=== PATIENT | female | born 1945 | race Caucasian/White ===

== ENCOUNTER 2016-06-15 00:33 | Inpatient (IN) | payer OTHER, MEDICARE ==
[2016-06-15] VITALS (15 sets, daily range): BP systolic 97–182; BP diastolic 48–82; PULSE 84–96; RESP 15–31; TEMP 98.1–100.2; O2SAT 94–98
[~2016-06-15 00:33] MED LIST: ALEN1TAB48 PO; ASPI81TA81 PO; BROV15NE NEB; CILO100T PO; CLON1TAB PO; CLOP75TA PO; GABA300C5 PO; GLIM2TAB PO; HYDR-3533 PO; HYDR25TA5 PO; LAMO100T PO; METF1000 PO; METO100T PO; OLME0.09 PO; OMEP40CA2 PO; ROPI3TAB PO; SYMB80AE INH; TOPA25TA8 PO; TRAZ50TA12 PO; VYTO10TA9 PO
[2016-06-15] MEDS ORDERED: ONDANSETRON HCL 4 MG/2 ML VIAL IV PRN (02:30)
[2016-06-15] MEDS ORDERED: MISCELLANEOUS NURSING INFORMATION XX SCH (02:30)
[2016-06-15] MEDS ORDERED: CHLORHEXIDINE GLUCONATE 2 % 1 PACK (2 CLOTHS) TOP PRN (02:30)
[2016-06-15] MEDS ORDERED: ACETAMINOPHEN 325 MG TAB PO PRN (02:30)
[2016-06-15] MEDS ORDERED: RESP: ALBUTEROL 2.5 MG/IPRATROPIUM 0.5 MG NEB (PRN) INH (02:30)
[2016-06-15] MEDS ORDERED: SENNOSIDES 8.6 MG TAB PO PRN (02:30)
[2016-06-15] MEDS: MORPHINE SULFATE 4 MG/ML INJ IV PRN ×2 (03:31→06:50)
[2016-06-15] MEDS: CHLORHEXIDINE GLUCONATE 2 % 1 PACK (2 CLOTHS) TOP SCH (04:00)
[2016-06-15] MEDS: HEPARIN SODIUM - SQ 10,000 UNITS/ML VIAL SQ SCH ×2 (05:00→17:57)
[2016-06-15 06:05] LABS: BLOOD GAS BASE EXCESS -2.6 mmol/L (-2-2); BLOOD GAS CARBOXYHEMOGLOBIN 1.3 % (0-4); BLOOD GAS HCO3 22 mmol/L (22-26); BLOOD GAS METHEMOGLOBIN 1.4 % (0-2); BLOOD GAS O2 HGB SATURATION 93 % (90-100); BLOOD GAS OXYGEN CONTENT 13.7 Vol % (12.0-20.0); BLOOD GAS PCO2 38 mmHg (38-42); BLOOD GAS PO2 77 mmHg (61-120); BLOOD GAS TOTAL HGB 10.5 G/DL (12.0-16.0); CRITICAL VALUE NO; DRAW SITE RT RADIAL; FIO2 30 %; NUMBER OF ARTERIAL PUNCTURES 1; OXYGEN DEVICE BIPAP; STAT NO; TEMP CORR TO 98.6; ULNAR PULSE Y; VENT SETTINGS IPAP14/EPAP7
[2016-06-15] MEDS ORDERED: traZODone HCL 50 MG TAB PO PRN (08:30)
[2016-06-15] MEDS ORDERED: GLUCAGON 1 MG/ML VIAL OTHER PRN (08:30)
[2016-06-15] MEDS ORDERED: DEXTROSE 50% IN WATER 50 ML VIAL(D50) IV PUSH PRN (08:30)
--- NOTE | 2016-06-15 08:42 | HHI.HP ---
[facility] Service Critical Care Medicine Primary Care Physician Non-Staff Admission Diagnosis Diagnosis: (1) Pulmonary edema (2) CAD (coronary artery disease) Diagnosis: Secondary (3) PVD (peripheral vascular disease) Diagnosis: Secondary (4) Acute respiratory failure with hypercapnia Diagnosis: Principal (5) Acute respiratory failure with hypoxemia Diagnosis: Principal (6) Migraine Diagnosis: Secondary (7) Diabetes mellitus Diagnosis: Secondary (8) Atrial fibrillation Diagnosis: Secondary (9) Anxiety Diagnosis: Secondary (10) Pacemaker Diagnosis: Secondary (11) Hyperlipidemia Travel History International Travel<30 Days: No Contact w/Intl Traveler <30 Da: No Traveled to Known Affected Are: No History of Present Illness 71-year-old female with past medical history of atrial fibrillation, recent pacemaker placement, coronary artery disease with prior myocardial infarction in 1999 requiring PCI, peripheral arterial disease, diabetes mellitus , former tobacco abuse, migraine headaches who presented to [facility] ED at around 9:45 pm on 06/14 with acute onset of shortness of breath that started after walking to the bathroom. She denies any chest pain or pressure. She did have some nausea. Denies diaphoresis. On presentation to the emergency department her blood pressure was 241/113. She had hypoxemic and hypercapnic respiratory failure with pH of 7.13/PaCO2 of 59/PaCO2 of 63. Chest x-ray was consistent with pulmonary edema. She was started on a nitroglycerin drip and placed on BiPAP 14 noted over 7. She was given Lasix 40 mg IV. She initially requested transfer to [facility] but there were no beds available. She then agreed to transfer to [facility].She diuresed about 900 mL and feels much improved. Her repeat ABG is improved with pH of 7.37/PaCO2 of 38/PaO2 of 76. SBP 131/61. I have transitioned her to nasal cannula and she is tolerating that well. She denies fever, chills, cough, sputum production, tenderness or drainage at pacemaker site. Temp is 100.2 this morning. She states the pacemaker that was placed 06/05/[address] Carlisle at [facility] after she had experienced recurrent episodes of syncope. Of note she also states that she had syncope and head trauma resulting in traumatic intracerebral hemorrhage on . She states that she does have migraine headaches and was seen in [facility] ED on 06/13 for what she describes as a typical migraine headache. She states that she received Dilaudid Phenergan and IV fluid bolus in the ED. CT brain was done at that time and she states it was "fine". She states she has been taking ASA since she was discharged after admission for head bleed. She states that her motorboat mechanic helper (Dr. Ahsan Rodrigues ) had wanted to start her on anticoagulation, but had requested followup appointment with neurology/?neurosurgery first and that outpatient followup is pending. She is also supposed to see her PMD, Dr. Bob Bennett, tomorrow. She states she has seen a mdm sr recently and had PFTs and sleep studies and states that "COPD and ALETHEA were ruled out". Review of Systems ROS Limitations: Clinical Condition Past Family Social History Allergies: Coded Allergies: Penicillin (Verified Allergy, Severe, 06/14/16) Shellfish (Verified Allergy, Severe, 06/14/16) Sulfa (Verified Allergy, Severe, 06/14/16) Past Medical History Atrial fibrillation Diabetes mellitus Hypertension Peripheral neuropathy Hyperlipidemia Coronary artery disease with prior myocardial infarction in 1999. She underwent emergent PCI at [facility]. Peripheral arterial disease Migraine headaches Osteoporosis Anxiety Past Surgical History Left carotid endarterectomy Stents bilateral lower extremities Pacemaker placement June 05, 2016 Appendectomy at age 11 D&C following a miscarriage Reported Medications Symbicort 2 puffs inhaled daily Priyanka Torsten 20 mg by mouth daily Gabapentin 300 mg by mouth 3 times a day Jorge Lupe 100 mg by mouth twice a day Topamax 25 mg by mouth daily Trazodone 50 mg by mouth daily at bedtime Klonopin 1 mg by mouth 3 times a day Metoprolol 100 mg by mouth twice a day Metformin 1000 mg by mouth twice a day Fosamax 70 mg by mouth daily Neuro hent are all 3 mg by mouth every afternoon Vytorin 10/40 one by mouth daily at bedtime Aspirin 81 by mouth daily Cilostazol 100 mg by mouth twice a day Omeprazole 40 mg by mouth daily glyburide 2 mg by mouth before meals HCTZ 25 mg by mouth daily Family History Mother from myocardial infarction at age 62 Father had a history of coronary artery disease with prior CABG, diabetes. He at age 65 from ruptured abdominal aortic aneurysm Social History She smoked from age [age]. Quit smoking about 3 years ago Denies alcohol or illicit drug use Is Is from [place] but currently resides in [place] Physical Exam Vital Signs Vital Signs Date Time Temp Pulse Resp B/P Pulse Ox O2 Delivery O2 Flow Rate FiO2 06/15/16 06:00 84 17 131/61 95 06/15/16 05:00 86 17 117/60 94 06/15/16 05:00 86 06/15/16 04:00 88 16 107/55 96 06/15/16 03:45 95 30 06/15/16 03:00 94 06/15/16 02:57 98.4 94 28 140/70 94 Physical Exam Temp 98.4 pulse 84 sinus Blood pressure 150/72 sats 96% on 3 L nasal cannula GENERAL: Well-nourished, well-developed obese female who is sitting up in [facility] bed alert, pleasant, talkative. SKIN: Warm and dry. HEAD: Atraumatic. Normocephalic. EYES: Pupils equal and round 2 mm reactive bilaterally. No scleral icterus. No injection or drainage. ENT: No nasal bleeding or discharge. Mucous membranes pink and moist. NECK: Trachea midline. No JVD. CARDIOVASCULAR: Regular rate and rhythm, sinus rhythm. Thoracic systolic murmur left sternal border. Pacemaker in left chest with Dermabond in place. Site is healing well without erythema, drainage. RESPIRATORY: Breathing comfortably without accessory muscle use. There are some Rales in the right base and bilateral slight respiratory wheeze. No rhonchi. GASTROINTESTINAL: Abdomen soft, non-tender, nondistended. Bowel sounds present. MUSCULOSKELETAL: Extremities without clubbing, cyanosis. There is trace to 1+ bilateral pedal edema. There is some ecchymoses over the lateral aspect of her right foot and swelling and redness over the right lateral malleolus. Patient states she had an ankle sprain about 3 weeks ago when she had a syncopal event. This was evaluated at outside hospital. She states her ankle looks much improved. NEUROLOGICAL: Awake and alert. No obvious cranial nerve deficits. Motor grossly within normal limits. Five out of 5 muscle strength in the arms and legs. Normal speech. Laboratory Laboratory Tests Test 06/15/16 06/15/16 03:00 05:46 Troponin I 0.13 Blood Gas Puncture Site RT RADIAL Blood Gas Patient Temperature 98.6 Blood Gas HCO3 22 Blood Gas Base Excess -2.6 Blood Gas Oxygen Saturation 93 Arterial Blood pH 7.38 Arterial Blood Partial 38 Pressure CO2 Arterial Blood Partial 77 Pressure O2 Arterial Blood Oxygen Content 13.7 Arterial Blood 1.3 Carboxyhemoglobin Arterial Blood Methemoglobin 1.4 Blood Gas Hemoglobin 10.5 Oxygen Delivery Device BIPAP Blood Gas Ventilator Setting IPAP14/EPAP7 Blood Gas Inspired Oxygen 30 Assessment and Plan Assessment and Plan NEURO: Migraine headaches Diabetic neuropathy Bipolar disorder Anxiety Recent intracerebral hemorrhage 06/01/16 Continue Lamotrigine 100 mg by mouth twice a day, Topamax 25 mg by mouth daily. Patient denies history of seizures. She states she is on these medications "for her nerves". ? perhaps for migraine prophylaxis? Continue Gabapentin 300 mg by mouth 3 times a day Continue Klonopin 1 mg by mouth 3 times a day Patient is alert and neurologically at baseline with no headache. I do not feel that it is indicated to repeat CT imaging at this time as patient has had several serial CAT scans at outside hospital and does not need additional unnecessary radiation exposure. We'll obtain these records. Patient has been on aspirin which I will continue. According to a medication list that was supplied at [place], she may have been on Plavix in the past but she states that she has not been on this"for a long time". She has followup with her neurologist regarding recommendations for possible initiation of therapeutic anticoagulation. I feel that is appropriate for her to follow up as an outpatient with these consultants who have elian managing this, unless an issue arises that mandates more urgent anticoagulation. RESP/CV: Acute hypoxemic and hypercapnic respiratory failure (resolved) Pulmonary edema Malignant hypertension Pulmonary edema Hyperlipidemia Coronary artery disease with prior PCI History of atrial fibrillation Pacemaker placement Remote history of tobacco abuse Suspect primary issue is pulmonary edema which may have been exacerbated by poorly controlled hypertension and recent boluses administered in ED visit 48 hours ago. Obtain 2-D echo. Troponin elevation at 0.13 may be secondary to pulmonary edema. We will trend. EKG Vpacing at a rate of 77 Continue aspirin as per discussion above. Continue metformin 100 mg by mouth twice a day, vytorin therapeutic interchange. Additional Lasix 20 mg IV this afternoon. F/u CXR in am. Off BiPAP. Nasal cannula wean as tolerated. DuoNeb every 6 hours. Continue Symbicort 2 puffs inhaled daily DuoNeb as needed Cardiology consult GI: 1800 ADA diet. Heart healthy FEN/RENAL: Childs in place. Monitor intake and output closely. Monitor electrolytes and replace as indicated. Creatinine was 1.20. Unknown baseline. Follow up BMP in a.m. ID: Leukocytosis with lymphocyte predominance. Now with temp of 100.2. She previously had no cough, sputum production, fever. Check influenza screen. Covered for atypical community acquired pneumonia with Levaquin 500 mg by mouth daily HEME: Monitor CBC ENDO: Diabetes mellitus Hold metformin and glimepiride Low-dose insulin sliding scale ACh PROPH: Protonix 40 mg daily for stress ulcer prophylaxis. SCDs for DVT prophylaxis. Obtain CT report results from 48 hours ago and if negative would be appropriate for heparin subcutaneous for DVT prophylaxis. ACCESS: Peripheral IV providing adequate access at this time. Transfer to floor. Hospitalist consult. Discussed with Dr. Swan. Level III H&P Problem Qualifiers (1) Pulmonary edema: Qualified Code: J81.0 - Acute pulmonary edema (2) Migraine: Leann Hernandez MD Jun 15, 2016 08:42
[2016-06-15] MEDS ORDERED: PILL SPLITTER OTHER PRN ×2 (08:45→20:00)
[2016-06-15] MEDS ORDERED: CILOSTAZOL 100 MG TAB PO SCH (09:00)
[2016-06-15] MEDS ORDERED: FUROSEMIDE 20 MG/2 ML VIAL IV PUSH ONE (09:00)
[2016-06-15] MEDS ORDERED: PANTOPRAZOLE SOD 40 MG DELAYED RELEASE TAB PO SCH (09:00)
[2016-06-15] MEDS: PANTOPRAZOLE SOD 40 MG DELAYED RELEASE TAB PO SCH (09:20)
[2016-06-15] MEDS: LEVOFLOXACIN 500 MG TAB PO SCH (09:20)
[2016-06-15] MEDS: lamoTRIgine 100 MG TAB PO SCH ×2 (09:21→20:57)
[2016-06-15] MEDS: METOPROLOL TARTRATE 100 MG TAB PO SCH ×2 (09:21→20:57)
[2016-06-15] MEDS: GABAPENTIN 300 MG CAP PO SCH ×3 (09:21→17:56)
[2016-06-15] MEDS: DOCUSATE SODIUM 100 MG CAP PO SCH ×2 (09:21→20:57)
[2016-06-15] MEDS: clonazePAM 1 MG TAB PO SCH ×3 (09:21→17:56)
[2016-06-15] MEDS: TOPIRAMATE 25 MG TAB PO SCH (09:25)
[2016-06-15] MEDS: BUDESONIDE-FORMOTEROL 80/4.5 MCG INHALER INH SCH (09:25)
[2016-06-15] MEDS ORDERED: RESP: ALBUTEROL 2.5 MG/IPRATROPIUM 0.5 MG NEB (PRN) NEB (09:30)
[2016-06-15] MEDS: INSULIN ASPART SUPPLEMENTAL SCALE SQ SCH ×3 (11:50→21:00)
--- NOTE | 2016-06-15 18:10 | PD.CONS ---
HPI Service Cardiology Consult Requested By ICU Reason for Consult HF Primary Care Physician Non-Staff History of Present Illness 71 y/o F with past medical history of atrial fibrillation, recent pacemaker placement, CAD, [place] in 1999 requiring PCI, PAD, DM, former tobacco who presented to the hospital with acute onset of SOB in the setting of HTN urgency. On presentation blood pressure was 241/113. She had hypoxemic and hypercapnic respiratory failure. Chest x-ray was consistent with pulmonary edema. She was started on a nitroglycerin drip, BiPAP and IV Lasix. Symptoms significantly improved. She diuresed about 900 mL. Her riveting machine operator automatic Dr. Rodrigues. Cardiology has been consulted for HF management, ? hypotension. Review of Systems ROS Limitations: Intubated Consitutional: DENIES: Fatigue, Fever, Chills, Weight gain, Weight loss Eyes: DENIES: Amaurosis Fugax, Change in vision HEENT: DENIES: Lightheadedness, Change in hearing Respiratory: COMPLAINS OF: Shortness of breath Cardiovascular: DENIES: See HPI, Chest pain, Palpitations, Syncope, Tachycardia Gastrointestinal: DENIES: Nausea, Vomiting, Change in bowel habits, Reflux, Bloody stools, Melena Genitourinary: DENIES: Urinary incontinence, Difficulty voiding Integumentary: DENIES: Rash Neurologic: DENIES: Tingling or numbness, Memory problems, Poor Balance, Stroke symptoms Musculoskeletal: DENIES: Joint pain, Muscle pain, Limited range of motion, Back pain Psychiatric: DENIES: Anxiety, Depression, Sleep disturbances Hematologic: DENIES: Bruising tendencies, Bleeding tendencies Endocrine: DENIES: Weight gain, Weight loss, Thyroid disease Past Family Social History Allergies: Coded Allergies: Penicillin (Verified Allergy, Severe, 06/14/16) Shellfish (Verified Allergy, Severe, 06/14/16) Sulfa (Verified Allergy, Severe, 06/14/16) Past Medical History Atrial fibrillation Diabetes mellitus Hypertension Peripheral neuropathy Hyperlipidemia Coronary artery disease with prior myocardial infarction in 1999. She underwent emergent PCI at [facility]. Peripheral arterial disease Migraine headaches Osteoporosis Anxiety Past Surgical History Left carotid endarterectomy Stents bilateral lower extremities Pacemaker placement June 05, 2016 Appendectomy at age 11 D&C following a miscarriage Reported Medications Reported Meds & Active Scripts Active Reported Trazodone (Trazodone HCl) 50 Mg Tab 50 Mg PO HS PRN Topamax (Topiramate) 25 Mg Tab 25 Mg PO DAILY Ropinirole 3 Mg Tab 3 Mg PO 3PM DAILY Omeprazole 40 Mg Cap 40 Mg PO DAILY Olmesartan 20 Mg Tab 20 Mg PO DAILY Metoprolol Tartrate 100 Mg Tab 100 Mg PO BID Metformin (Metformin HCl) 1,000 Mg Tab 1,000 Mg PO BIDAC With meals Lamotrigine 100 Mg Tab 100 Mg PO BID Hydrochlorothiazide 25 Mg Tab 25 Mg PO DAILY Glimepiride 2 Mg Tab 2 Mg PO AC BREAKFAST Gabapentin 300 Mg Cap 300 Mg PO TID Vytorin (Ezetimibe-Simvastatin) 10-40 Mg Tab 1 Tab PO HS Clonazepam 1 Mg Tab 1 Mg PO TID Cilostazol 100 Mg Tab 100 Mg PO BID Symbicort Inh (Budesonide/Formoterol Fumarate) 80-4.5 Mcg/Act Aero 2 Puff INH DAILY Aspir-81 (Aspirin) 81 Mg Tabdr 81 Mg PO Alendronate (Alendronate Sodium) 70 Mg Tab 70 Mg PO Q7D Active Ordered Medications Current Medications Medications (Trade) Dose Ordered Sig/Henri Route Start Time Stop Time Status Last Admin (Tylenol) 650 mg Q6H PRN PO 06/15/16 02:30 (Zofran Inj) 4 mg Q6H PRN IV 06/15/16 02:30 (Colace) 100 mg BID PO 06/15/16 09:00 06/15/16 09:21 (Senokot) 17.2 mg Q12H PRN PO 06/15/16 02:30 (Heparin Inj) 5,000 units Q12H SQ 06/15/16 06:00 06/15/16 17:57 Miscellaneous Information 1 Q361D XX 06/15/16 02:30 (Chlorhexidine 2% Cloth) 3 pack Taper DAILY@04 TOP 06/15/16 04:00 06/11/17 03:59 06/15/16 04:00 (Chlorhexidine 2% Cloth) 3 pack UNSCH PRN TOP 06/15/16 02:30 (Symbicort 80-4.5 Mcg Inh) 2 puff DAILY INH 06/15/16 09:00 06/15/16 09:25 (KlonoPIN) 1 mg TID PO 06/15/16 09:00 06/15/16 17:56 (Neurontin) 300 mg TID PO 06/15/16 09:00 06/15/16 17:56 (LaMICtal) 100 mg BID PO 06/15/16 09:00 06/15/16 09:21 (Lopressor) 100 mg BID PO 06/15/16 09:00 06/15/16 09:21 (Topamax) 25 mg DAILY PO 06/15/16 09:00 06/15/16 09:25 (Desyrel) 50 mg HS PRN PO 06/15/16 08:30 (Zetia) 10 mg HS PO 06/15/16 21:00 (Protonix) 40 mg DAILY PO 06/15/16 09:00 06/15/16 09:20 (Requip) 3 mg DAILY@15 PO 06/15/16 15:00 06/15/16 15:41 (Levaquin) 500 mg DAILY PO 06/15/16 09:00 06/15/16 09:20 (D50w (Vial) Inj) 25 ml UNSCH PRN IV PUSH 06/15/16 08:30 (Glucagon Inj) 1 mg UNSCH PRN OTHER 06/15/16 08:30 (Pill Splitter) 1 ea UNSCH PRN OTHER 06/15/16 08:45 06/15/16 15:41 (Pravachol) 80 mg HS PO 06/15/16 21:00 (Valdez 5-325 Mg) 1 tab Q6H PRN PO 06/15/16 09:30 Family History Mother from myocardial infarction at age 62 Father had a history of coronary artery disease with prior CABG, diabetes. He at age 65 from ruptured abdominal aortic aneurysm Social History She smoked from age [age]. Quit smoking about 3 years ago Denies alcohol or illicit drug use Is Is from [place] but currently resides in [place] Physical Exam Vital Signs Vital Signs Date Time Temp Pulse Resp B/P Pulse Ox O2 Delivery O2 Flow Rate FiO2 06/15/16 16:00 98.3 86 31 115/55 96 06/15/16 13:00 86 18 95 06/15/16 12:00 98.3 86 26 128/59 96 06/15/16 09:01 96 25 166/65 95 06/15/16 08:01 100.2 96 28 182/82 94 06/15/16 08:00 96 Nasal Cannula 3.00 06/15/16 08:00 90 06/15/16 08:00 Nasal Cannula 4.00 06/15/16 07:01 90 18 150/72 96 06/15/16 06:00 84 17 131/61 95 06/15/16 05:00 86 17 117/60 94 06/15/16 05:00 86 06/15/16 04:00 88 16 107/55 96 06/15/16 03:45 95 30 06/15/16 03:00 94 06/15/16 02:57 98.4 94 28 140/70 94 Physical Exam GENERAL: Well-nourished, well-developed patient. SKIN: Warm and dry. HEAD: Normocephalic. EYES: No scleral icterus. No injection or drainage. NECK: Supple, trachea midline. No JVD or lymphadenopathy. CARDIOVASCULAR: Regular rate and rhythm without murmurs, gallops, or rubs. RESPIRATORY: Breath sounds equal bilaterally. No accessory muscle use. GASTROINTESTINAL: Obese, Abdomen soft, non-tender, nondistended. EXTREMITIES: No cyanosis, diminished pulses throughout Laboratory Laboratory Tests Test 06/15/16 06/15/16 06/15/16 03:00 05:46 08:25 Nasal Screen MRSA (PCR) MRSA NOT DETECTED Troponin I 0.13 0.10 Blood Gas Puncture Site RT RADIAL Blood Gas Patient Temperature 98.6 Blood Gas HCO3 22 Blood Gas Base Excess -2.6 Blood Gas Oxygen Saturation 93 Arterial Blood pH 7.38 Arterial Blood Partial 38 Pressure CO2 Arterial Blood Partial 77 Pressure O2 Arterial Blood Oxygen Content 13.7 Arterial Blood 1.3 Carboxyhemoglobin Arterial Blood Methemoglobin 1.4 Blood Gas Hemoglobin 10.5 Oxygen Delivery Device BIPAP Blood Gas Ventilator Setting IPAP14/EPAP7 Blood Gas Inspired Oxygen 30 Date/Time Procedure Status Source Growth 06/15/16 09:15 Aerobic Blood Culture Received Blood Peripheral Pending 06/15/16 09:15 Anaerobic Blood Culture Received Blood Peripheral Pending 06/15/16 09:00 Influenza Types A,B Antigen (LUTHER) - Final Complete Nasal Aspirate NEGATIVE FOR FLU A AND B ANTIGEN.... Assessment and Plan Problem List: (1) Pulmonary edema Assessment and Plan: 71 y/o F with pulmonary edema in the setting of hypertension emergency. Doing better after IV diuresis and BP control. Afebrile and hemodynamically stable. Troponin elevation secondary to HTN episode. Recommendations: 1. Cont BB, statin, ASA 2. Start ACEi 2. Chest x-ray 3. 2Decho 4. Cont IV diuresis with Lasix IV and transition to PO in AM 5. Strict I&O 6. Low salt diet 7. F/U with cardio when discharge Thank you for the participate in the care of this patient Patient should follow with her riveting machine operator automatic upon discharge Sign off. Problem Qualifiers (1) Pulmonary edema: Qualified Code: J81.0 - Acute pulmonary edema Mansoor Means MD Jun 15, 2016 18:10
[2016-06-15] MEDS ORDERED: EZETIMIBE 10 MG TAB PO SCH (21:00)
[2016-06-15] MEDS ORDERED: PRAVASTATIN SOD 40 MG TAB PO SCH (21:00)
[2016-06-16] VITALS: BP 143/78; PULSE 82; RESP 20; TEMP 97.1; O2SAT 99
[2016-06-16] MEDS: CHLORHEXIDINE GLUCONATE 2 % 1 PACK (2 CLOTHS) TOP SCH (01:31)
[2016-06-16] MEDS: ACETAMINOPHEN/HYDROcodone 325 MG/5 MG TAB PO PRN ×2 (03:50→11:09)
[2016-06-16 04:00] VITALS: BP 146/87; PULSE 72; RESP 18; TEMP 96.4; O2SAT 93
[2016-06-16] MEDS: INSULIN ASPART SUPPLEMENTAL SCALE SQ SCH (06:16)
[2016-06-16] MEDS: HEPARIN SODIUM - SQ 10,000 UNITS/ML VIAL SQ SCH (06:21)
--- NOTE | 2016-06-16 06:38 | RADHPO ---
EXAM DATE/TIME: 06/16/2016 06:10 [place] COMPARISON: CHEST SINGLE AP, June 14, 2016, 22:07. INDICATIONS : Respiratory distress. MEDICAL HISTORY : Cardiovascular disease. SURGICAL HISTORY : Pacemaker. ENCOUNTER: Subsequent ACUITY: 2 days PAIN SCORE: 0/10 LOCATION: chest FINDINGS: The cardiac silhouette is enlarged in transverse diameter. A bipolar pacemaker is in place via a left sided approach. There is prominence of the central pulmonary vasculature with indistinct vascular ma rgins compatible with vascular congestion but no evidence of overt failure. Small bilateral pleural e ffusions are identified. CONCLUSION: 1. Cardiomegaly and findings of vascular congestion without overt failure. The findings are improved when compared with the prior exam. Yoshi Lyon MD on June 16, 2016 at 6:36 Board Certified Radiologist. This report was verified electronically.
[2016-06-16 06:44] LABS: AUTOMATED NEUTROPHIL # 4.8 TH/MM3 (1.8-7.7); BASOPHIL % 0.4 % (0.0-2.0); EOSINOPHIL # 0.1 TH/MM3 (0-0.4); EOSINOPHIL % 1.2 % (0.0-4.0); HEMATOCRIT 31.9 % (35.0-46.0); LYMPH % 27.9 % (9.0-44.0); LYMPHOCYTE # 2.2 TH/MM3 (1.0-4.8); MEAN CELL VOLUME 77.7 FL (80.0-100.0); MEAN CORPUSCULAR HGB CONC 32.1 % (32.0-36.0); NEUT % 62.5 % (16.0-70.0); PLATELET COUNT 278 TH/MM3 (150-450); RED BLOOD COUNT 4.11 MIL/MM3 (4.00-5.30); RED CELL DISTRIBUTION WIDTH 15.6 % (11.6-17.2); WHITE BLOOD COUNT 7.7 TH/MM3 (4.0-11.0)
[2016-06-16 06:52] LABS: HEMO FLAGS AUTO DIFF
[2016-06-16 06:57] LABS: POTASSIUM 3.7 MEQ/L (3.5-5.1)
[2016-06-16 07:03] LABS: MAGNESIUM 1.9 MG/DL (1.5-2.5)
[2016-06-16 07:22] LABS: SCAN/DIFF AUTO DIFF CONFIRMED
[2016-06-16 08:00] VITALS: BP 147/80; PULSE 82; RESP 18; TEMP 98.1; O2SAT 93; O2SAT 94
[2016-06-16] MEDS: DOCUSATE SODIUM 100 MG CAP PO SCH (09:00)
[2016-06-16] MEDS ORDERED: LISINOPRIL 5 MG TAB PO SCH (09:00)
[2016-06-16] MEDS ORDERED: ASPIRIN EC 81 MG TABEC PO SCH (09:00)
[2016-06-16] MEDS: BUDESONIDE-FORMOTEROL 80/4.5 MCG INHALER INH SCH (09:18)
[2016-06-16 09:20] VITALS: PULSE 82
[2016-06-16] MEDS: clonazePAM 1 MG TAB PO SCH (09:20)
[2016-06-16] MEDS: lamoTRIgine 100 MG TAB PO SCH (09:20)
[2016-06-16] MEDS: LEVOFLOXACIN 500 MG TAB PO SCH (09:21)
[2016-06-16] MEDS: METOPROLOL TARTRATE 100 MG TAB PO SCH (09:22)
[2016-06-16] MEDS: TOPIRAMATE 25 MG TAB PO SCH (09:22)
[2016-06-16] MEDS: GABAPENTIN 300 MG CAP PO SCH (09:23)
[2016-06-16] MEDS: PANTOPRAZOLE SOD 40 MG DELAYED RELEASE TAB PO SCH (09:23)
--- NOTE | 2016-06-16 10:12 | HHI.PR ---
Subjective Remarks The patient said she felt well and wanted to go home. She denied any shortness of breath. She said she has been ambulating. She said she has a follow-up with her neurologist scheduled. She wanted to know if she should be on a fluid restriction. Family was at the bedside. Discussed with nursing. Objective Vitals Vital Signs Date Time Temp Pulse Resp B/P Pulse Ox O2 Delivery O2 Flow Rate FiO2 06/16/16 04:00 96.4 72 18 146/87 93 06/16/16 00:00 97.1 82 20 143/78 99 06/15/16 20:00 98.1 86 15 97/48 95 06/15/16 20:00 90 06/15/16 19:40 98 Nasal Cannula 2.00 06/15/16 19:00 Nasal Cannula 2.00 06/15/16 16:00 98.3 86 31 115/55 96 06/15/16 13:00 86 18 95 06/15/16 12:00 98.3 86 26 128/59 96 I/O 06/15/16 06/15/16 06/15/16 06/16/16 06/16/16 06/16/16 07:00 15:00 23:00 07:00 15:00 23:00 Intake Total 480 ml 960 ml 460 ml Output Total 325 ml 1450 ml 500 ml Balance -325 ml 480 ml -490 ml -40 ml Intake Oral 480 ml 960 ml 460 ml Output Urine Total 325 ml 1450 ml 500 ml # Bowel Movements 0 0 Result Diagram: 06/16/16 0606/16/16 06 Imaging Last Impressions Chest X-Ray 06/16/16599 Signed Impressions: Service Date/Time: Thursday, June 16, 2016 06:10 - CONCLUSION: 1. Cardiomegaly and findings of vascular congestion without overt failure. The findings are improved when compared with the prior exam. Yoshi Lyon MD Objective Remarks GENERAL: Well-nourished, well-developed obese female in NAD. SKIN: Warm and dry. HEAD: Atraumatic. Normocephalic. EYES: Pupils equal and round 2 mm reactive bilaterally. No scleral icterus. No injection or drainage. ENT: No nasal bleeding or discharge. Mucous membranes pink and moist. NECK: Trachea midline. No JVD. CARDIOVASCULAR: Regular rate and rhythm, sinus rhythm. Systolic murmur appreciated. Pacemaker in left chest with Dermabond in place. Site is healing well without erythema or drainage. RESPIRATORY: Breathing comfortably without accessory muscle use. CTAB. No W/R/R. GASTROINTESTINAL: Abdomen soft, non-tender, nondistended. Bowel sounds present. MUSCULOSKELETAL: Extremities without clubbing, cyanosis. There is trace bilateral pedal edema. NEUROLOGICAL: Awake and alert. No obvious cranial nerve deficits. Motor grossly within normal limits. Five out of 5 muscle strength in the arms and legs. Normal speech. PSYCH: Mood and affect appropriate. Medications and IVs Current Medications Medications (Trade) Dose Ordered Sig/Henri Route Start Time Stop Time Status Last Admin (Tylenol) 650 mg Q6H PRN PO 06/15/16 02:30 (Zofran Inj) 4 mg Q6H PRN IV 06/15/16 02:30 (Colace) 100 mg BID PO 06/15/16 09:00 06/15/16 20:57 (Senokot) 17.2 mg Q12H PRN PO 06/15/16 02:30 (Heparin Inj) 5,000 units Q12H SQ 06/15/16 06:00 06/16/16 06:21 Miscellaneous Information 1 Q361D XX 06/15/16 02:30 (Chlorhexidine 2% Cloth) 3 pack Taper DAILY@04 TOP 06/15/16 04:00 06/11/17 03:59 06/15/16 04:00 (Chlorhexidine 2% Cloth) 3 pack UNSCH PRN TOP 06/15/16 02:30 (Symbicort 80-4.5 Mcg Inh) 2 puff DAILY INH 06/15/16 09:00 06/16/16 09:18 (KlonoPIN) 1 mg TID PO 06/15/16 09:00 06/16/16 09:20 (Neurontin) 300 mg TID PO 06/15/16 09:00 06/16/16 09:23 (LaMICtal) 100 mg BID PO 06/15/16 09:00 06/16/16 09:20 (Lopressor) 100 mg BID PO 06/15/16 09:00 06/16/16 09:22 (Topamax) 25 mg DAILY PO 06/15/16 09:00 06/16/16 09:22 (Desyrel) 50 mg HS PRN PO 06/15/16 08:30 (Zetia) 10 mg HS PO 06/15/16 21:00 06/15/16 20:57 (Protonix) 40 mg DAILY PO 06/15/16 09:00 06/16/16 09:23 (Requip) 3 mg DAILY@15 PO 06/15/16 15:00 06/15/16 15:41 (Levaquin) 500 mg DAILY PO 06/15/16 09:00 06/16/16 09:21 (D50w (Vial) Inj) 25 ml UNSCH PRN IV PUSH 06/15/16 08:30 (Glucagon Inj) 1 mg UNSCH PRN OTHER 06/15/16 08:30 (Pill Splitter) 1 ea UNSCH PRN OTHER 06/15/16 08:45 06/15/16 15:41 (Pravachol) 80 mg HS PO 06/15/16 21:00 06/15/16 20:56 ([place] 5-325 Mg) 1 tab Q6H PRN PO 06/15/16 09:30 06/16/16 03:50 (Ecotrin Ec) 81 mg DAILY PO 06/16/16 09:00 06/16/16 09:19 (Prinivil) 2.5 mg DAILY PO 06/16/16 09:00 06/16/16 09:22 (Lasix) 40 mg DAILY PO 06/16/16 11:00 (KCl) 20 meq ONCE ONCE PO 06/16/16 11:00 06/16/16 11:01 A/P Assessment and Plan Acute hypoxemic and hypercapnic respiratory failure/ Pulmonary edema Suspect primary issue is pulmonary edema which may have been exacerbated by poorly controlled hypertension and recent boluses administered in recent ED visit. Troponin peaked at 0.13. EKG Vpacing at a rate of 77. S/p Lasix. Appreciate cardiology consult. - Continue aspirin, ARB and Lopressor. - start PO Lasix. - oxygen and nebs as needed. - follow echo. - cardiology follow up as an outpt. - continue Symbicort. Malignant hypertension Blood pressure largely improved. - continue medication regimen and adjust as needed. Coronary artery disease/ Atrial fibrillation S/p pacemaker placement and PCI. - continue cardiac regimen. - telemetry. Recent traumatic intracerebral hemorrhage Sustained 06/01/16. Patient is alert and neurologically at baseline with no headache. I do not feel that it is indicated to repeat CT imaging at this time as patient has had several serial CAT scans at outside hospital and does not need additional unnecessary radiation exposure. - obtain OSH records. - continue aspirin. - Continue Lamotrigine 100 mg by mouth twice a day, Topamax 25 mg by mouth daily , Gabapentin 300 mg by mouth 3 times a day, Klonopin 1 mg by mouth 3 times a day. - She has followup with her neurologist regarding recommendations for possible initiation of therapeutic anticoagulation. - neuro checks. Acute renal insufficiency Creatinine was 1.2 on admission. Improved. - follow BMP as an outpt. Leukocytosis Resolved. - Covered for atypical community acquired pneumonia with Levaquin 500 mg by mouth daily in light of respiratory symptoms. Diabetes mellitus On metformin and glimepiride. - hold home meds. Low-dose insulin sliding scale ACh. PPx: SCDs. Ambrosio Swan DO June 16, 2016 10:12
[2016-06-16] MEDS ORDERED: POTA20TA5 PO (10:32)
[2016-06-16] MEDS ORDERED: HYDR-3516 PO (10:32)
[2016-06-16] MEDS ORDERED: FURO40TA PO (10:32)
[2016-06-16] MEDS ORDERED: LEVA500T PO (10:32)
[2016-06-16] MEDS ORDERED: PRAV40TA PO (10:36)
--- NOTE | 2016-06-16 10:37 | HHI.DCPOC ---
Discharge Care Plan Diagnosis: (1) Pulmonary edema (2) CAD (coronary artery disease) (3) PVD (peripheral vascular disease) (4) Bronchitis Goals to Promote Your Health * To prevent worsening of your condition and complications * To maintain your health at the optimal level Directions to Meet Your Goals Take your medications as prescribed Follow your dietary instruction Follow activity as directed Keep your appointments as scheduled Take your immunizations and boosters as scheduled If your symptoms worsen call your PCP, if no PCP go to Urgent Care Center or Emergency Room Smoking is Dangerous to Your Health. Avoid second hand smoke Call the 24-hour hour crisis hotline for domestic abuse at Ambrosio Swan DO June 16, 2016 10:36
[2016-06-16] MEDS ORDERED: FUROSEMIDE 40 MG TAB PO SCH (11:00)
[2016-06-16] MEDS ORDERED: POTASSIUM CHLORIDE 20 MEQ CONTROLLED RELEASE TAB PO ONE (11:00)
--- NOTE | 2016-06-16 20:01 | EC ---
Study Study Date:06/16/2016 STUDY CONCLUSIONS SUMMARY - Left ventricle: The cavity size was normal. Wall thickness was normal. Systolic function was normal. The estimated ejection fraction was 55%. Wall motion was normal; there were no regional wall motion abnormalities. - Aortic valve: Mildly calcified annulus. Trileaflet; mildly thickened, mildly calcified leaflets. - Mitral valve: Mild regurgitation. - Right ventricle: The cavity size was mildly dilated. Wall thickness was normal. - Tricuspid valve: Mild regurgitation. - Pericardium, extracardiac: There wassmall posteriorpericardial effusion. If LV function is below 40, please consider prescribing an ACEI or ARB or document rationale for non-use. PROCEDURE DATA STUDY STATUS: Elective. Procedure: Transthoracic echocardiography. Image quality was good. Scanning was performed from the parasternal, apical, and subcostal acoustic windows. Study completion: The patient tolerated the procedure well. Transthoracic echocardiography. M-mode, complete 2D, complete spectral Doppler, and color Doppler. Patient status: Inpatient. CARDIAC ANATOMY LEFT VENTRICLE: The cavity size was normal. Wall thickness was normal. Systolic function was normal. The estimated ejection fraction was 55%. Wall motion was normal; there were no regional wall motion abnormalities. AORTIC VALVE: Mildly calcified annulus. Trileaflet; mildly thickened, mildly calcified leaflets. Doppler: Transvalvular velocity was within the normal range. There was no stenosis. No regurgitation. AORTA: Aortic root: The aortic root was normal in size. MITRAL VALVE: Structurally normal valve. Doppler: Transvalvular velocity was within the normal range. There was no evidence for stenosis. Mild regurgitation. LEFT ATRIUM: The atrium was normal in size. RIGHT VENTRICLE: The cavity size was mildly dilated. Wall thickness was normal. PULMONIC VALVE: Doppler: Transvalvular velocity was within the normal range. There was no evidence for stenosis. No regurgitation. TRICUSPID VALVE: Structurally normal valve. Doppler: Transvalvular velocity was within the normal range. Mild regurgitation. PULMONARY ARTERY: The main pulmonary artery was normal-sized. Systolic pressure was within the normal range. RIGHT ATRIUM: The atrium was normal in size. PERICARDIUM: There wassmall posteriorpericardial effusion. SYSTEMIC VEINS: Inferior vena cava: The vessel was normal in size. BASIC MEASUREMENTS ADULT NORMAL Left ventricle LV internal dimension, ED, chordal level, *35.8 mm 43-52 PLAX LV internal dimension, ES, chordal level, 26.9 mm 23-38 PLAX Fractional shortening, chordal level, PLAX *25 % >29 LV posterior wall thickness, ED 9.8 mm IVS/LVPW ratio, ED 1.04 <1.3 Ventricular septum Septal thickness, ED 10.2 mm Aortic valve Leaflet separation *13 mm 15-26 Right ventricle RV internal dimension, ED, PLAX 29.6 mm 19-38 BASIC MEASUREMENTS ADULT NORMAL Aortic valve Leaflet separation *13 mm 15-26 Aorta Root diameter, ED 21 mm 20-37 Left atrium Anterior-posterior dimension, ES 30 mm 19-40 LA/aortic root ratio 1.43 LEGEND: Mean values are shown as u=mean value. Asterisk (*) acevedo values outside specified normal range. Prepared and signed by Varun Chen [id number]
--- NOTE | 2016-06-16 23:06 | EKG ---
Date Performed: 06/15/2016 Time Performed: 14:44:02 PTAGE: 71 years EKG: Sinus rhythm with borderline 1st degree A-V block. Rightward axis Right bundle branch block Inferior ST-T changes may be due to myocardial ischemia Abnormal ECG PREVIOUS TRACING : 06/15/2016 09.35 Compared to prior tracing no significant change DOCTOR: Paxton Walker Interpretating Date/Time 06/16/2016 23:03:18
--- NOTE | 2016-06-16 23:12 | EKG ---
Date Performed: 06/15/2016 Time Performed: 09:35:34 PTAGE: 71 years EKG: Sinus rhythm with borderline 1st degree A-V block. Rightward axis Right bundle branch block Inferior/lateral ST-T changes may be due to myocardial ischemia Abnormal ECG NO PREVIOUS TRACING DOCTOR: Paxton Walker Interpretating Date/Time 06/16/2016 23:11:40
[2016-07-14] MEDS ORDERED: VYTO10TA9 PO (12:35)
[2016-07-14] MEDS ORDERED: CLOP75TA PO (12:35)
[2016-07-14] MEDS ORDERED: METF1000 PO (12:35)
[2016-07-14] MEDS ORDERED: BENI20TA5 PO (12:35)
[2016-07-14] MEDS ORDERED: ASPI-110 PO (12:35)
[2016-07-14] MEDS ORDERED: BROV15NE NEB (12:35)
[2016-07-14] MEDS ORDERED: FOSA70TA PO (12:35)
[2016-07-14] MEDS ORDERED: NEUR300C PO (12:35)
[2016-07-14] MEDS ORDERED: PROM25TA10 PO (14:18)
[2016-07-14] MEDS ORDERED: PERC5TAB12 PO (14:18)
== END 2016-06-16 12:00 | disposition home or self-care (01) | DRG 189 ==
LOC: PHEDDLT 00:33 → PHICU 03:10 → PH3B 22:50
PROVIDERS: ADMIT Hospitalist; ATTEND Hospitalist
PROC: 5A09357 Assistance with Respiratory Ventilation, Less than 24 Consecutive Hours, Continuous Positive Airway Pressure (ICD-10-PCS; principal; 2016-06-15)
DX: J96.01 Acute respiratory failure with hypoxia (principal); J81.0 Acute pulmonary edema; E11.40 Type 2 diabetes mellitus with diabetic neuropathy, unspecified; I48.91 Unspecified atrial fibrillation; I16.0 Hypertensive urgency; E78.5 Hyperlipidemia, unspecified; D72.829 Elevated white blood cell count, unspecified; G43.909 Migraine, unspecified, not intractable, without status migrainosus; J40 Bronchitis, not specified as acute or chronic; I10 Essential (primary) hypertension; I25.2 Old myocardial infarction; I25.10 Atherosclerotic heart disease of native coronary artery without angina pectoris; J96.02 Acute respiratory failure with hypercapnia; Z95.0 Presence of cardiac pacemaker; Z98.61 Coronary angioplasty status; I73.9 Peripheral vascular disease, unspecified; Z87.891 Personal history of nicotine dependence; Z79.84 Long term (current) use of oral hypoglycemic drugs; Z82.49 Family history of ischemic heart disease and other diseases of the circulatory system; M81.0 Age-related osteoporosis without current pathological fracture; F41.9 Anxiety disorder, unspecified; Z88.2 Allergy status to sulfonamides; Z88.0 Allergy status to penicillin; Z91.013 Allergy to seafood; F31.9 Bipolar disorder, unspecified; N28.9 Disorder of kidney and ureter, unspecified
CPT/HCPCS: 36600; 51702; 71010; 80048; 80053; 81001; 82550; 82805; 82948; 83605; 83735; 83880; 84100; 84484; 85007; 85025; 85027; 85610; 85730; 87040; 87077; 87086; 87186; 87641; 87804; 93005; 93306; 94002; 94003; 94150; 96374; 96375; 99281; J1644; J1815; J1940; J2270

== ENCOUNTER 2016-11-01 07:57 | Observation (INO) | payer OTHER, MEDICARE ==
[~2016-11-01 07:57] MED LIST changes: -ALEN1TAB48 PO; +ASPI-110 PO; -ASPI81TA81 PO; +BENI20TA5 PO; +FOSA70TA PO; -GABA300C5 PO; +HYDR-3516 PO; -HYDR-3533 PO; +NEUR300C PO; -OLME0.09 PO; +PERC5TAB12 PO; +PROM25TA10 PO
[2016-11-01 14:30] VITALS: BP 173/88; PULSE 75; RESP 18; TEMP 98.9; O2SAT 98
[2016-11-01 15:00] VITALS: PULSE 74
[2016-11-01] MEDS: BUDESONIDE-FORMOTEROL 80/4.5 MCG INHALER INH SCH (15:15)
[2016-11-01] MEDS ORDERED: NALOXONE HCL 0.4 MG/ML AMP IV PUSH PRN (15:15)
[2016-11-01] MEDS ORDERED: MAGNESIUM HYDROXIDE SUSP 30 ML CUP PO PRN (15:15)
[2016-11-01] MEDS ORDERED: LACTULOSE SYRUP 20 GM/30 ML CUP PO PRN (15:15)
[2016-11-01] MEDS ORDERED: SENNOSIDES 8.6 MG TAB PO PRN (15:15)
[2016-11-01] MEDS ORDERED: DEXTROSE 50% IN WATER 50 ML VIAL(D50) IV PRN (15:15)
[2016-11-01] MEDS ORDERED: SODIUM CHLORIDE 0.9% FLUSH 10 ML FLUSH IV FLUSH PRN (15:15)
[2016-11-01] MEDS ORDERED: GLUCAGON 1 MG/ML VIAL OTHER PRN (15:15)
[2016-11-01] MEDS ORDERED: PROMETHAZINE HCL 25 MG TAB PO PRN (15:15)
[2016-11-01] MEDS ORDERED: ONDANSETRON HCL 4 MG/2 ML VIAL IVP PRN (15:15)
[2016-11-01] MEDS ORDERED: traZODone HCL 50 MG TAB PO PRN (15:15)
[2016-11-01] MEDS ORDERED: BISACODYL 10 MG SUPP RECTAL PRN (15:15)
--- NOTE | 2016-11-01 15:29 | HHI.HP ---
[facility] Ad[facility] Diagnosis Diagnoses: Chief Complaint: Altered mental status Travel History International Travel<30 Days: No Contact w/Intl Traveler <30 Da: No History of Present Illness This is a 71-year-old female past medical history of coronary disease status post stent placement, carotid stenosis status post right carotid endarterectomy , peripheral vascular disease status post bilateral stent placement, type 2 diabetes, hypertension, migraines, restless leg syndrome and hyperlipidemia who presented with questionable altered mental status. Patient stated that she has been without any air conditioning or power for the past week since her can arm up. She stated that she has been exhausted from the heat and that yesterday she felt dizziness and had diarrhea. She also felt nauseous and wanted to vomit but couldn't vomit. Patient described dizziness as the room was spinning and that she turn her head one way or the other dizziness worsen. Patient stated that she had this happen in the past and she was given medications for it but does not know the name of it. Deny any headache, visual changes, focal neurological deficits. When patient was seen in the ED per ED physician patient became somnolent and she had pinpoint pupils. She was given Narcan 2 doses in which symptoms resolved. Patient stated that she has not taken any pain medication at all. Her urine drug screen is negative for this. At the moment she is asymptomatic and stated that she is back to her baseline. Patient's nurse is at the bedside during the interview. All other systems reviewed and negative. Past Family Social History Past Medical History Coronary artery disease Bilateral carotid stenosis Peripheral vascular disease Type 2 diabetes Hypertension Hyperlipidemia Versus leg syndrome Migraine Heart murmur but patient unsure what type of heart murmur Past Surgical History Right endarterectomy Stent placement 2000 Appendectomy Reported Medications Reported Meds & Active Scripts Active Phenergan (Promethazine HCl) 25 Mg Tablet 25 Mg PO Q6H PRN Percocet (Oxycodone-Acetaminophen) 5-325 mg Tab 1 Tab PO Q4H PRN Hydrocodone-Acetaminophen 5-325 mg Tab 1 Tab PO Q6H PRN Reported Benicar (Olmesartan) 20 Mg Tab 20 Mg PO DAILY Metformin (Metformin HCl) 1,000 Mg Tab 1,000 Mg PO BIDPC With meals Neurontin (Gabapentin) 300 Mg Cap 300 Mg PO TID Vytorin (Ezetimibe-Simvastatin) 10-40 Mg Tab 1 Tab PO HS Clopidogrel (Clopidogrel Bisulfate) 75 Mg Tab 75 Mg PO DAILY Aspirin 81 (Aspirin) 81 Mg Tabdr 81 Mg PO DAILY Brovana Neb (Arformoterol Neb) 15 Mcg/2 Ml Vial 1 Nebule NEB BID Maintenance treatment of bronchoconstriction in COPD. Fosamax (Alendronate Sodium) 70 Mg Tab 70 Mg PO Q7D Trazodone (Trazodone HCl) 50 Mg Tab 50 Mg PO HS PRN Topamax (Topiramate) 25 Mg Tab 25 Mg PO DAILY Ropinirole 3 Mg Tab 3 Mg PO 3PM DAILY Omeprazole 40 Mg Cap 40 Mg PO DAILY Metoprolol Tartrate 100 Mg Tab 100 Mg PO BID Lamotrigine 100 Mg Tab 100 Mg PO BID Hydrochlorothiazide 25 Mg Tab 25 Mg PO DAILY Glimepiride 2 Mg Tab 2 Mg PO AC BREAKFAST Clonazepam 1 Mg Tab 1 Mg PO TID Cilostazol 100 Mg Tab 100 Mg PO BID Symbicort Inh (Budesonide/Formoterol Fumarate) 80-4.5 Mcg/Act Aero 2 Puff INH DAILY Allergies: Coded Allergies: Sulfa (Sulfonamide Antibiotics) (Verified Allergy, Severe, 11/01/16) penicillin G (Verified Allergy, Severe, 11/01/16) shellfish derived (Verified Allergy, Severe, 11/01/16) Family History Mother history of heart disease Social History Denied any alcohol or illicit drug use. Denies any alcohol use. She stated that she is not on any narcotics. Physical Exam Vital Signs Vital Signs Date Time Temp Pulse Resp B/P (MAP) Pulse Ox O2 Delivery O2 Flow Rate FiO2 11/01/16 14:30 98.9 75 18 173/88 (116) 98 Physical Exam GENERAL: This is a well-nourished, well-developed patient, in no apparent distress. SKIN: No rashes, ecchymoses or lesions. Cool and dry. HEAD: Atraumatic. Normocephalic. No temporal or scalp tenderness. EYES: Pupils equal round and reactive. Extraocular motions intact. No scleral icterus. No injection or drainage. ENT: Nose without bleeding, purulent drainage or septal hematoma. Throat without erythema, tonsillar hypertrophy or exudate. Uvula midline. Airway patent. NECK: Trachea midline. No JVD or lymphadenopathy. Supple, nontender, no meningeal signs. CARDIOVASCULAR: Regular rate and rhythm without gallops, or rubs. 3/6 systolic heart murmur. RESPIRATORY: Clear to auscultation. Breath sounds equal bilaterally. No wheezes , rales, or rhonchi. GASTROINTESTINAL: Abdomen soft, non-tender, nondistended. No hepato-splenomegaly , or palpable masses. No guarding. MUSCULOSKELETAL: Extremities without clubbing, cyanosis, or edema. No joint tenderness, effusion, or edema noted. No calf tenderness. Negative Homans sign bilaterally. NEUROLOGICAL: Awake and alert. Cranial nerves II through XII intact. Motor and sensory grossly within normal limits. Five out of 5 muscle strength in all muscle groups. Normal speech. Caprini VTE Risk Assessment Caprini VTE Risk Assessment: Mod/High Risk (score >= 2) Caprini Risk Assessment Model Point Value = 1 Point Value = 2 Point Value = 3 Point Value = 5 Age 41-60 Minor surgery BMI > 25 kg/m2 Swollen legs Varicose veins or History of unexplained or recurrent spontaneous Oral contraceptives or hormone replacement Sepsis (< 1 month) Serious lung disease, including pneumonia (< 1 month) Abnormal pulmonary function Acute myocardial infarction Congestive heart failure (< 1 month) History of inflammatory bowel disease Medical patient at bed rest Age 61-74 Arthroscopic surgery Major open surgery (> 45 min) Laparoscopic surgery (> 45 min) Malignancy Confined to bed (> 72 hours) Immobilizing plaster cast Central venous access Age >= 75 History of VTE Family history of VTE Factor V Leiden Prothrombin [id number] Lupus anticoagulant Anticardiolipin antibodies Elevated serum homocysteine Heparin-induced thrombocytopenia Other congenital or acquired thrombophilia Stroke (< 1 month) Elective arthroplasty Hip, pelvis, or leg fracture Acute spinal cord injury (< 1 month) Prophylaxis Regimen Total Risk Factor Score Risk Level Prophylaxis Regimen 0-1 Low Early ambulation 2 Moderate Order ONE of the following: *Sequential Compression Device (SCD) *Heparin 5000 units SQ BID 3-4 Higher Order ONE of the following medications: *Heparin 5000 units SQ TID *Enoxaparin/Lovenox 40 mg SQ daily (WT < 150 kg, CrCl > 30 mL/min) *Enoxaparin/Lovenox 30 mg SQ daily (WT < 150 kg, CrCl > 10-29 mL/min) *Enoxaparin/Lovenox 30 mg SQ BID (WT < 150 kg, CrCl > 30 mL/min) AND/OR *Sequential Compression Device (SCD) 5 or more Highest Order ONE of the following medications: *Heparin 5000 units SQ TID (Preferred with Epidurals) *Enoxaparin/Lovenox 40 mg SQ daily (WT < 150 kg, CrCl > 30 mL/min) *Enoxaparin/Lovenox 30 mg SQ daily (WT < 150 kg, CrCl > 10-29 mL/min) *Enoxaparin/Lovenox 30 mg SQ BID (WT < 150 kg, CrCl > 30 mL/min) AND *Sequential Compression Device (SCD) Assessment and Plan Assessment and Plan 71-year-old female with extensive peripheral vascular disease, coronary disease as the stent placement, type 2 diabetes, hypertension, migraines, restless leg syndrome who presented with questionable altered mental status Altered mental status per ED physician -Status post given Narcan 2 was resolution of symptoms. Urine drug screen negative. -Labs reviewed and relatively normal. CT scan of the head was negative. CTA of the chest is also negative. At the moment she is asymptomatic and back to baseline. -Maybe secondary to long heat exposure but labs did not suggest any signs of dehydration. May also be exacerbated by multiple sedated medication. Continue to monitor. Dizziness -Patient had this diagnosis in the past. Clinically sounds like BPPV. -Asymptomatic the moment. can give meclizine when necessary. Coronary artery disease status post stent placement/T2 diabetes/hypertension/ migraine/restless leg syndrome -Resume home medication. Will put patient on insulin sliding scale. Hypoglycemia protocol. DVT prophylaxis -Encourage ambulation. -SCDs. Discussed Condition With patient and her nurse Flory Joe MD Nov 01, 2016 15:29
[2016-11-01] MEDS ORDERED: MECLIZINE HCL 25 MG TAB PO PRN (15:45)
[2016-11-01 16:00] VITALS: BP 161/79; PULSE 70; PULSE 73; RESP 17; TEMP 98.9; O2SAT 98
[2016-11-01] MEDS: ACETAMINOPHEN 325 MG TAB PO PRN (16:23)
[2016-11-01] MEDS: LOSARTAN 50 MG TAB PO SCH (16:28)
[2016-11-01] MEDS: ASPIRIN EC 81 MG TABEC PO SCH (16:28)
[2016-11-01] MEDS: CLOPIDOGREL 75 MG TAB PO SCH (16:28)
[2016-11-01] MEDS: CIPROFLOXACIN 500 MG TAB PO SCH (16:28)
[2016-11-01] MEDS: GABAPENTIN 300 MG CAP PO SCH (16:29)
[2016-11-01] MEDS: metFORMIN HCL 500 MG TAB PO SCH (16:29)
[2016-11-01] MEDS: clonazePAM 1 MG TAB PO SCH (16:29)
[2016-11-01] MEDS: HYDROCHLOROTHIAZIDE 25 MG TAB PO SCH (16:29)
[2016-11-01 17:00] VITALS: PULSE 94
[2016-11-01] MEDS: INSULIN ASPART SUPPLEMENTAL SCALE SQ SCH ×2 (17:00→21:00)
[2016-11-01 18:00] VITALS: PULSE 86
[2016-11-01 20:45] VITALS: BP 158/79; PULSE 89; RESP 18; TEMP 96.7; O2SAT 97
[2016-11-01] MEDS: DOCUSATE SODIUM 50 MG/SENNA 8.6 MG TAB PO SCH (21:00)
[2016-11-01] MEDS: ARFORMOTEROL 15 MCG/2 ML NEB SCH (21:00)
[2016-11-01] MEDS ORDERED: SIMVASTATIN PO SCH (21:00)
[2016-11-01] MEDS ORDERED: EZETIMIBE PO SCH (21:00)
[2016-11-01] MEDS: CILOSTAZOL 100 MG TAB PO SCH (21:00)
[2016-11-02] MEDS: lamoTRIgine 100 MG TAB PO SCH ×2 (00:10→08:05)
[2016-11-02] MEDS: METOPROLOL TARTRATE 100 MG TAB PO SCH ×2 (00:12→08:03)
[2016-11-02] MEDS: CIPROFLOXACIN 500 MG TAB PO SCH ×2 (00:12→08:04)
[2016-11-02] MEDS: SODIUM CHLORIDE 0.9% FLUSH 10 ML FLUSH IV FLUSH SCH ×2 (00:13→08:06)
[2016-11-02 00:34] VITALS: BP 134/68; PULSE 80; RESP 18; TEMP 96.9; O2SAT 98
[2016-11-02 04:15] VITALS: BP 127/62; PULSE 71; RESP 18; TEMP 96.7; O2SAT 96
[2016-11-02] MEDS ORDERED: GLIMEPIRIDE 2 MG TAB PO SCH (07:00)
[2016-11-02 08:00] VITALS: BP 168/84; PULSE 75; RESP 18; TEMP 96.7; O2SAT 98
[2016-11-02] MEDS: INSULIN ASPART SUPPLEMENTAL SCALE SQ SCH ×2 (08:00→12:00)
[2016-11-02] MEDS: ASPIRIN EC 81 MG TABEC PO SCH (08:04)
[2016-11-02] MEDS: metFORMIN HCL 500 MG TAB PO SCH (08:04)
[2016-11-02] MEDS: clonazePAM 1 MG TAB PO SCH ×2 (08:05→12:37)
[2016-11-02] MEDS: LOSARTAN 50 MG TAB PO SCH (08:05)
[2016-11-02] MEDS: DOCUSATE SODIUM 50 MG/SENNA 8.6 MG TAB PO SCH (08:05)
[2016-11-02] MEDS: CLOPIDOGREL 75 MG TAB PO SCH (08:05)
[2016-11-02] MEDS: GABAPENTIN 300 MG CAP PO SCH ×2 (08:05→12:37)
[2016-11-02] MEDS: CILOSTAZOL 100 MG TAB PO SCH (08:05)
[2016-11-02] MEDS: HYDROCHLOROTHIAZIDE 25 MG TAB PO SCH (08:05)
[2016-11-02] MEDS: BUDESONIDE-FORMOTEROL 80/4.5 MCG INHALER INH SCH (08:06)
[2016-11-02] MEDS: ACETAMINOPHEN 325 MG TAB PO PRN (08:26)
[2016-11-02] MEDS ORDERED: TOPIRAMATE 25 MG TAB PO SCH (09:00)
[2016-11-02] MEDS: ARFORMOTEROL 15 MCG/2 ML NEB SCH (09:00)
[2016-11-02] MEDS ORDERED: PANTOPRAZOLE SOD 40 MG DELAYED RELEASE TAB PO SCH (09:00)
[2016-11-02 10:05] LABS: HEMATOCRIT 35.8 % (35.0-46.0); MEAN CELL VOLUME 81.6 FL (80.0-100.0); MEAN CORPUSCULAR HEMOGLOBIN 27.1 PG (27.0-34.0); MEAN CORPUSCULAR HGB CONC 33.2 % (32.0-36.0); PLATELET COUNT 240 TH/MM3 (150-450); RED BLOOD COUNT 4.39 MIL/MM3 (4.00-5.30); REVIEW FLAG FINAL; WHITE BLOOD COUNT 6.8 TH/MM3 (4.0-11.0)
[2016-11-02 10:16] VITALS: PULSE 77
[2016-11-02 10:30] LABS: BICARBONATE 23.7 MEQ/L (21.0-32.0)
[2016-11-02] MEDS ORDERED: MECL12.574 PO (10:51)
--- NOTE | 2016-11-02 10:53 | HHI.DCPOC ---
Discharge Care Plan Diagnosis: (1) Vertigo (2) Pericardial effusion (3) Dehydration Goals to Promote Your Health * To prevent worsening of your condition and complications * To maintain your health at the optimal level Directions to Meet Your Goals Take your medications as prescribed Follow your dietary instruction Follow activity as directed Keep your appointments as scheduled Take your immunizations and boosters as scheduled If your symptoms worsen call your PCP, if no PCP go to Urgent Care Center or Emergency Room Smoking is Dangerous to Your Health. Avoid second hand smoke Call the 24-hour hour crisis hotline for domestic abuse at Flory Joe MD Nov 02, 2016 10:53
--- NOTE | 2016-11-02 10:53 | HHI.DS ---
Discharge Summary Admission Date Nov 01, 2016 at 15:11 Discharge Date: Nov 02, 2016 Admitting Diagnosis (1) Dehydration ICD Code: E86.0 - Dehydration Diagnosis: Principal (2) Pericardial effusion ICD Code: I31.3 - Pericardial effusion (noninflammatory) Diagnosis: Secondary (3) Vertigo ICD Code: R42 - Dizziness and giddiness Diagnosis: Secondary Procedures none Brief History - From Admission This is a 71-year-old female past medical history of coronary disease status post stent placement, carotid stenosis status post right carotid endarterectomy , peripheral vascular disease status post bilateral stent placement, type 2 diabetes, hypertension, migraines, restless leg syndrome and hyperlipidemia who presented with questionable altered mental status. Patient stated that she has been without any air conditioning or power for the past week since her can arm up. She stated that she has been exhausted from the heat and that yesterday she felt dizziness and had diarrhea. She also felt nauseous and wanted to vomit but couldn't vomit. Patient described dizziness as the room was spinning and that she turn her head one way or the other dizziness worsen. Patient stated that she had this happen in the past and she was given medications for it but does not know the name of it. Deny any headache, visual changes, focal neurological deficits. When patient was seen in the ED per ED physician patient became somnolent and she had pinpoint pupils. She was given Narcan 2 doses in which symptoms resolved. Patient stated that she has not taken any pain medication at all. Her urine drug screen is negative for this. At the moment she is asymptomatic and stated that she is back to her baseline. Patient's nurse is at the bedside during the interview. All other systems reviewed and negative. CBC/BMP: 11/02/16 0908 11/02/16 0908 Significant Findings Laboratory Tests Test 11/02/16 09:08 Blood Urea Nitrogen 21 MG/DL (7-18) Random Glucose 121 MG/DL (74-106) Sodium Level 134 MEQ/L (136-145) Estimat Glomerular Filtration Rate 66 ML/MIN (>89) PE at Discharge GENERAL: in NAD SKIN: Warm and dry. HEAD: Normocephalic. EYES: No scleral icterus. No injection or drainage. NECK: Supple, trachea midline. No JVD or lymphadenopathy. CARDIOVASCULAR: Regular rate and rhythm without murmurs, gallops, or rubs. RESPIRATORY: Breath sounds equal bilaterally. No accessory muscle use. GASTROINTESTINAL: Abdomen soft, non-tender, nondistended. MUSCULOSKELETAL: No cyanosis, or edema. BACK: Nontender without obvious deformity. No CVA tenderness. Pt update on day of discharge Follow-up for altered mental status and dizziness Patient denies any dizziness. She said that she felt that she is back to her baseline. Patient very anxious go home. She stated that her power is back on since last night. Denied any headache, visual changes, and focal neurological deficit have. Patient feels like she is back to her baseline. Denies any chest pain, shortness of breathing, palpitation, lightheadedness dizziness. cardiac technician was at the bedside and patient declined echo. She stated that she recently got echo from aquatic biologist and does not feel like she needs another one at the moment despite time patient that she is getting it for pericardial perfusion shown on CTA. Hospital Course 71-year-old female with extensive peripheral vascular disease, coronary disease as the stent placement, type 2 diabetes, hypertension, migraines, restless leg syndrome who presented with questionable altered mental status Altered mental status per ED physician -Status post given Narcan 2 was resolution of symptoms. Urine drug screen negative. -Labs reviewed and relatively normal. CT scan of the head was negative. CTA of the chest is also negative. During her admission patient was asymptomatic. -Most likely secondary to dehydration since patient had no electricity or air- conditioning for whole week. Dizziness -Patient had this diagnosis in the past. Clinically sounds like BPPV. -Asymptomatic while hospitalized. She was able to ambulate without any difficulty during hospitalization. Can use meclizine when necessary. Follow- up with her PCP. Review physical therapist note but at the moment if she is asymptomatic and meclizine helps she really does not need any physical therapy. This will be up to her primary care physician. Coronary artery disease status post stent placement/T2 diabetes/hypertension/ migraine/restless leg syndrome -continue home medication. mild pericardial effusion found on CTA -Patient is asymptomatic and declined echo. -Patient stated that she will follow up with her aquatic biologist in regards to this. -Patient told if she becomes symptomatic to return to the emergency department. Pt Condition on Discharge: Good Discharge Disposition: Discharge Home Discharge Time: <= 30 minutes Discharge Instructions DIET: Follow Instructions for: Heart Healthy Diet, Diabetic Diet Activities you can perform: Regular-No Restrictions Follow up Referrals: Cardiology - 1 Week PCP Follow-up - 1 Week New Medications: Meclizine (Meclizine) 12.5 Mg Tab 12.5 MG PO TID PRN for VERTIGO, #20 TAB 0 Refills Continued Medications: Alendronate (Fosamax) 70 Mg Tab 70 MG PO Q7D for Osteoporosis Treatment, #4 TAB 0 Refills Arformoterol Neb (Brovana Neb) 15 Mcg/2 Ml Vial 1 NEBULE NEB BID for Broncospasm, #60 NEBULE Maintenance treatment of bronchoconstriction in COPD. Aspirin DR (Aspirin 81) 81 Mg Tabdr 81 MG PO DAILY, TAB 0 Refills Budesonide-Formoterol Inh (Symbicort Inh) 80-4.5 Mcg/Act Aero 2 PUFF INH DAILY for Asthma Management, #1 INHALER 0 Refills Cilostazol (Cilostazol) 100 Mg Tab 100 MG PO BID for INTERMITTENT CLAUDICATION, TAB 0 Refills Clonazepam (Clonazepam) 1 Mg Tab 1 MG PO TID, TAB 0 Refills Clopidogrel (Clopidogrel) 75 Mg Tab 75 MG PO DAILY for Blood Clot Prevention, #30 TAB 0 Refills Ezetimibe-Simvastatin (Vytorin) 10-40 Mg Tab 1 TAB PO HS, #30 TAB 0 Refills Gabapentin (Neurontin) 300 Mg Cap 300 MG PO TID, #90 CAP 0 Refills Glimepiride (Glimepiride) 2 Mg Tab 2 MG PO AC BREAKFAST for Blood Sugar Management, TAB 0 Refills Hydrochlorothiazide (Hydrochlorothiazide) 25 Mg Tab 25 MG PO DAILY, #30 TAB 0 Refills Hydrocodone-Acetaminophen (Hydrocodone-Acetaminophen) 5-325 mg Tab 1 TAB PO Q6H PRN for PAIN, #12 TAB Lamotrigine (Lamotrigine) 100 Mg Tab 100 MG PO BID for Control Seizures, TAB 0 Refills Metformin (Metformin) 1,000 Mg Tab 1000 MG PO BIDPC for Blood Sugar Management, #60 TAB 0 Refills With meals Metoprolol Tartrate (Metoprolol Tartrate) 100 Mg Tab 100 MG PO BID, TAB 0 Refills Olmesartan (Benicar) 20 Mg Tab 20 MG PO DAILY for Blood Pressure Management, #30 TAB 0 Refills Omeprazole (Omeprazole) 40 Mg Cap 40 MG PO DAILY, CAP 0 Refills Oxycodone-Acetaminophen (Percocet) 5-325 mg Tab 1 TAB PO Q4H PRN for PAIN, #20 TAB 0 Refills Promethazine (Phenergan) 25 Mg Tablet 25 MG PO Q6H PRN for NAUSEA OR VOMITING, #20 TAB 0 Refills Ropinirole (Ropinirole) 3 Mg Tab 3 MG PO 3pm daily, TAB 0 Refills Topiramate (Topamax) 25 Mg Tab 25 MG PO DAILY for Control Seizures, TAB 0 Refills Trazodone (Trazodone) 50 Mg Tab 50 MG PO HS PRN for INSOMNIA, TAB 0 Refills Flory Joe MD Nov 02, 2016 10:53
== END 2016-11-02 12:59 | disposition home or self-care (01) ==
LOC: NEDDLT 15:00 → HCIN 15:11 → N06B 20:51
PROVIDERS: ADMIT Family Medicine; ATTEND Family Medicine
DX: R42 Dizziness and giddiness (principal); I31.3 Pericardial effusion (noninflammatory); E86.0 Dehydration; I25.10 Atherosclerotic heart disease of native coronary artery without angina pectoris; I10 Essential (primary) hypertension; I48.91 Unspecified atrial fibrillation; J44.9 Chronic obstructive pulmonary disease, unspecified; G43.909 Migraine, unspecified, not intractable, without status migrainosus; G25.81 Restless legs syndrome; I73.9 Peripheral vascular disease, unspecified; E78.5 Hyperlipidemia, unspecified; E11.9 Type 2 diabetes mellitus without complications; R82.79 Other abnormal findings on microbiological examination of urine; Z79.84 Long term (current) use of oral hypoglycemic drugs; Z95.5 Presence of coronary angioplasty implant and graft
CPT/HCPCS: 70450; 71010; 71275; 80048; 80053; 80307; 81001; 82550; 82948; 83690; 83735; 83880; 84484; 85025; 85027; 85379; 85610; 85730; 87077; 87086; 87186; 93005; 96361; 96374; 96375; 96376; 97163; 99285; C9113; G0378; G8987; G8988; J2310; J2765; J7040; Q9967